=== PATIENT | female | born 1990 | race Caucasian/White ===

== ENCOUNTER 2019-04-17 09:18 | Emergency (ER) | payer OTHER ==
[2019-04-17 09:45] VITALS: BP 112/70
--- NOTE | 2019-04-17 09:55 | UC ---
General HPI - HPI Summary HPI Summary: pt found a tick on her L inner thigh 2 weeks ago that may have been on for 2 days. she now notes a rash at the bite site. + fatigue. no fever, joint pain or other complaints. - History of Current Complaint Chief Complaint: BRENTkin Stated Complaint: TICK CONCERN Time Seen by Provider: 04/17/19 09:38 Hx Obtained From: Patient Hx Last Menstrual Period: 11/2017 Onset/Duration: Gradual Onset Timing: Constant Pain Intensity: 2 - Allergy/Home Medications Allergies/Adverse Reactions: Allergies Allergy/AdvReac Type Severity Reaction Status Date / Time No Known Allergies Allergy Verified 04/17/19 09:39 Home Medications: Home Medications Brexpiprazole (Nf) [Rexulti] 1 mg PO DAILY 04/17/19 [History Confirmed 04/17/19] Sertraline* [Zoloft*] 200 mg PO DAILY 04/17/19 [History Confirmed 04/17/19] PMH/Surg Hx/FS Hx/Imm Hx Psychological History: Depression - Surgical History Surgical History: None - Family History Known Family History: Positive: Non-Contributory - Social History Lives: With Family Alcohol Use: None Substance Use Type: None Smoking Status (MU): Never Smoked Tobacco Review of Systems All Other Systems Reviewed And Are Negative: Yes Constitutional: Positive: Fatigue Skin: Positive: Rash Physical Exam Triage Information Reviewed: Yes Appearance: Well-Appearing Vital Signs: Initial Vital Signs Temp 98.3 F 04/17/19 09:37 Pulse 98 04/17/19 09:37 Resp 18 04/17/19 09:37 BP 112/70 04/17/19 09:37 Pulse Ox 100 04/17/19 09:37 Vital Signs Reviewed: Yes Eyes: Positive: Conjunctiva Clear ENT: Positive: Normal ENT inspection Neck: Positive: Supple Respiratory: Positive: Lungs clear, Normal breath sounds, No respiratory distress Cardiovascular: Positive: RRR, No Murmur Abdomen Description: Positive: Nontender Musculoskeletal: Positive: ROM Intact, No Edema Neurological: Positive: Alert Psychological: Positive: Age Appropriate Behavior Skin Exam: Normal Skin: Positive: Rashes - 5cmx2.5 cm oval pink to red rash L thigh at tick bite site. Course/Dx - Differential Dx - Multi-Symptom Differential Diagnoses: Other - rash is not a bulls eye; however, based on hx and PE I am going to start presumptive tx for Lyme disease plus add a Lyme titer. - Diagnoses Provider Diagnosis: Tick bite Discharge - Sign-Out/Discharge Documenting (check all that apply): Patient Departure All imaging exams completed and their final reports reviewed: No Studies - Discharge Plan Condition: Stable Disposition: HOME Prescriptions: DOXYcycline CAP(*) [DOXYcycline 100MG CAP(*)] 100 mg PO BID 14 Days #28 cap Patient Education Materials: Lyme Disease (ED) Referrals: Misti Chaparro MD [Primary Care Provider] - 7 Days - Billing Disposition and Condition Condition: STABLE Disposition: Home
== END 2019-04-17 10:12 | disposition home or self-care (01) ==
LOC: UCCORT 09:18
DX: S70.362A Insect bite (nonvenomous), left thigh, initial encounter (principal); W57.XXXA Bitten or stung by nonvenomous insect and other nonvenomous arthropods, initial encounter; Y92.9 Unspecified place or not applicable; F32.9 Major depressive disorder, single episode, unspecified
CPT/HCPCS: 36415; 86618; 99212; G0463